=== PATIENT | female | born 1945 | race Caucasian/White ===

== ENCOUNTER 2017-07-30 10:13 | Emergency (ER) | payer MEDICARE, MEDICAID ==
[2017-07-30 10:20] VITALS: RESP 20; TEMP 98.7; O2SAT 100
[2017-07-30 12:25] VITALS: BP 128/74; PULSE 49
--- NOTE | 2017-07-30 13:50 | RAD ---
PROCEDURE: Radiographs of the Right Shoulder HISTORY: r/o fx COMPARISON: No prior. FINDINGS: BONES: Normal. No fracture. JOINTS: Normal. Glenohumeral and acromioclavicular joints preserved. No osteoarthritis. SOFT TISSUES: Normal. OTHER FINDINGS: None. IMPRESSION: Normal radiographs of the right shoulder.
--- NOTE | 2017-07-30 13:51 | RAD ---
PROCEDURE: Left Knee Radiographs. HISTORY: Pain. COMPARISON: None. FINDINGS: BONES: Normal. No fracture. JOINTS: Normal. No osteoarthritis. JOINT EFFUSION: None. OTHER FINDINGS: None. IMPRESSION: Normal radiographs of the left knee.
--- NOTE | 2017-07-30 13:51 | RAD ---
PROCEDURE: Radiographs of the Lumbar Spine. HISTORY: r/o fx COMPARISON: No prior. FINDINGS: BONES: Vertebral bodies maintained in height. Minimal (grade 1) anterolisthesis at L4-5. Normal alignment maintained elsewhere. DISC SPACES: Unremarkable. OTHER FINDINGS: None. IMPRESSION: No fracture. Grade 1 anterolisthesis at L4-5.
--- NOTE | 2017-07-30 13:51 | RAD ---
PROCEDURE: Left Hip X-ray Radiographs. HISTORY: r/o fx COMPARISON: None. FINDINGS: BONES: Normal. No fracture. JOINTS: Normal. SOFT TISSUES: Normal. OTHER FINDINGS: None. IMPRESSION: Normal left hip radiographs.
--- NOTE | 2017-07-30 15:23 | C.PDOC ---
History Of Present Illness 71 y/o female brought to ER by ambulance for evaluation s/p slip and fall in the bathtub. Patient is complaining of right shoulder, lower back, and left hip pain. Patient denies having dizziness, LOC, CP,SOB, and abdominal pain. - HPI Chief Complaint (Nursing): Trauma History Per: Patient History/Exam Limitations: no limitations Onset/Duration Of Symptoms: Hrs Severity: Moderate Past Medical History Reviewed: Historical Data, Nursing Documentation, Vital Signs Vital Signs: Last Vital Signs Temp 98.7 F 07/30/17 10:19 Pulse 49 L 07/30/17 12:22 Resp 20 07/30/17 12:22 BP 128/74 07/30/17 12:22 Pulse Ox 100 07/30/17 15:38 - Medical History PMH: Anxiety, Asthma, Depression, Diverticulitis, HTN Surgical History: Cholecystectomy Family History: States: No Known Family Hx - Social History Hx Alcohol Use: No Hx Substance Use: No - Immunization History Hx Tetanus Toxoid Vaccination: No Hx Influenza Vaccination: No Hx Pneumococcal Vaccination: No Review Of Systems Except As Marked, All Systems Reviewed And Found Negative. Cardiovascular: Negative for: Chest Pain Respiratory: Negative for: Shortness of Breath Gastrointestinal: Negative for: Abdominal Pain Musculoskeletal: Positive for: Shoulder Pain (right shoulder pain), Back Pain, Other (left hip pain) Neurological: Negative for: Numbness, Dizziness Physical Exam - Physical Exam Appears: Non-toxic, No Acute Distress Skin: Normal Color, Warm, Dry Head: Atraumatic, Normacephalic Eye(s): bilateral: Normal Inspection Nose: Normal Oral Mucosa: Moist Neck: Supple Chest: Symmetrical Cardiovascular: Rhythm Regular Respiratory: Normal Breath Sounds, No Rales, No Rhonchi, No Wheezing Back: Other (diffuse tenderness to lower back) Extremity: Normal ROM, Tenderness (diffuse tenderness to right shoulder and left hip), No Swelling Neurological/Psych: Oriented x3, Normal Speech ED Course And Treatment O2 Sat by Pulse Oximetry: 100 (RA) Pulse Ox Interpretation: Normal - Other Rad X-Ray -Right Shoulder X-Ray: Viewed By Me, Read By Radiologist Interpretation: PROCEDURE: Radiographs of the Right Shoulder. HISTORY: r/o fx. COMPARISON: No prior. FINDINGS: BONES: Normal. No fracture. JOINTS: Normal. Glenohumeral and acromioclavicular joints preserved. No osteoarthritis. SOFT TISSUES: Normal. OTHER FINDINGS: None. IMPRESSION: Normal radiographs of the right shoulder. X-Ray - Lumbar Spine X-Ray: Viewed By Me, Read By Radiologist Interpretation: PROCEDURE: Radiographs of the Lumbar Spine. HISTORY: r/o fx. COMPARISON: No prior. FINDINGS: BONES: Vertebral bodies maintained in height. Minimal (grade 1) anterolisthesis at L4-5. Normal alignment maintained elsewhere. DISC SPACES: Unremarkable. OTHER FINDINGS: None. IMPRESSION: No fracture. Grade 1 anterolisthesis at L4-5. X - Ray - Left Hip X-Ray: Viewed By Me, Read By Radiologist Interpretation: PROCEDURE: Left Hip X-ray Radiographs. HISTORY: r/o fx. COMPARISON: None. FINDINGS: BONES: Normal. No fracture. JOINTS: Normal. SOFT TISSUES: Normal. OTHER FINDINGS: None. IMPRESSION: Normal left hip radiographs. X-Ray - Left Knee X-Ray: Viewed By Me, Read By Radiologist Interpretation: PROCEDURE: Left Knee Radiographs. HISTORY: Pain. COMPARISON : None. FINDINGS: BONES: Normal. No fracture. JOINTS: Normal. No osteoarthritis. JOINT EFFUSION: None. OTHER FINDINGS: None. IMPRESSION: Normal radiographs of the left knee. Medical Decision Making Medical Decision Making: Plan: -- X-Ray - Right Shoulder --X- Ray - Lumbar Spine -- X-Ray - Left Hip -- X -Ray - Left Hip Updates: X- Rays did not show any fractures. Patient has been discharged and instructed to follow up with PMD in 3-4 days. Disposition - Disposition Referrals: [facility], [Non-Staff] - Disposition: HOME/ ROUTINE Disposition Time: 13:05 Condition: GOOD Additional Instructions: [employer], thank you for letting us take care of you today. Your provider was Skyler Alegria DO. The emergency medical care you received today was directed at your acute symptoms. If you were prescribed any medication, please fill it and take as directed. It may take several days for your symptoms to resolve. Return to the Emergency Department if your symptoms worsen, do not improve, or if you have any other problems. Please contact your doctor or call one of the physicians/clinics you have been referred to that are listed on the Patient Visit Information form that is included in your discharge packet. Bring any paperwork you were given at discharge with you along with any medications you are taking to your follow up visit. Our treatment cannot replace ongoing medical care by a primary care provider outside of the emergency department. Thank you for allowing the [facility] team to be part of your care today. Follow up with your primary care doctor in 3-4 days for re-evaluation and further management. Prescriptions: Ibuprofen [Motrin] 600 mg PO Q6 PRN #20 tab PRN Reason: Pain, Moderate (4-7) Instructions: Muscle and Bone Pain (DC) Forms: [employer] ([place]) - Clinical Impression Clinical Impression: Musculoskeletal pain - Scribe Statement The provider has reviewed the documentation as recorded by the [facility] Provider Attestation: All medical record entries made by the Scribe were at my direction and personally dictated by me. I have reviewed the chart and agree that the record accurately reflects my personal performance of the history, physical exam, medical decision making, and the department course for this patient. I have also personally directed, reviewed, and agree with the discharge instructions and disposition.
== END 2017-07-30 13:25 | disposition home or self-care (01) ==
LOC: C.ER 10:13
DX: M79.1 Myalgia (principal)